=== PATIENT | male | born 1960 | race Caucasian/White ===

== ENCOUNTER 2016-11-28 22:02 | Emergency (ER) | payer OTHER ==
[~2016-11-28] VITALS: Ht 172.7 cm; Wt 60.0 kg
[~2016-11-28 22:02] MED LIST: IBUP600T26 PO; LISI-357 PO
[2016-11-28] MEDS ORDERED: LISI-519 PO (23:26)
--- NOTE | 2016-11-28 23:27 | PD ---
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 The donor patient is comatose and likely to be a victim of drug overdose. The donor patient may have used this needle, it was left uncapped and a small pouch. The needle is an insulin syringe with a tiny insulin syringe needle on the end. The donor patient does not have any IV drug abuse [place] on his forearms. The donor patient appears to be healthy and well hydrated. The needlestick that the [place] officer received was so small that he did not think it broke the skin initially. A small amount of blood later came from the stick on his left index finger. At this time we have no friends or family available to get a history about the donor patient. The officer received the needlestick at approximately 9:30 PM tonight. The donor patient appears to be in his 20s. One girl who was with the donor patient thought he might of been injecting heroin. The officer has a history of hypertension and ran out of his lisinopril. We will write him a prescription for his usual 5 mg lisinopril. PFSH Past Medical History Anxiety: Yes Cancer: No Diabetes: No Diminished Hearing: No Glaucoma: No Headaches: Yes Hepatitis: No Hiatal Hernia: No Hypertension: Yes Thyroid Disease: No Past Surgical History Ear Surgery: No Eye Surgery: No Genitourinary Surgery: Yes (urinary stent placed) Gynecologic Surgery: No Oral Surgery: No Pacemaker: No Other Surgery: Yes Social History Alcohol Use: No Tobacco Use: Yes (1 BLK & MILD DAILY) Substance Use: No Allergies-Medications (Allergen,Severity, Reaction): Coded Allergies: No Known Allergies (Verified , 01/25/15) Reported Meds & Prescriptions Reported Meds & Active Scripts Active Ibuprofen 600 Mg Tab 600 Mg PO TID PRN Reported Lisinopril 5 mg (Lisinopril) 5 Mg Tab 5 Mg PO Review of Systems Except as stated in HPI: all other systems reviewed are Neg Physical Exam Narrative GENERAL: Well-nourished, well-developed patient in no apparent distress. The blood pressure is 179/93. The Rest of his vital signs are normal. SKIN: Warm and dry. I cannot see the area of the needle stick on the left index fingerdistal phalanx. HEAD: Normocephalic. EYES: No scleral icterus. No injection or drainage. NECK: Supple, trachea midline. No JVD or lymphadenopathy. CARDIOVASCULAR: Regular rate and rhythm without murmurs, gallops, or rubs. RESPIRATORY: Breath sounds equal bilaterally. No accessory muscle use. GASTROINTESTINAL: Abdomen soft, non-tender, nondistended. MUSCULOSKELETAL: No cyanosis, or edema. BACK: Nontender without obvious deformity. No CVA tenderness. MDM Medical Decision Making Medical Screen Exam Complete: Yes Emergency Medical Condition: Yes Medical Record Reviewed: Yes Differential Diagnosis Contaminated needlestickhigh risk for hepatitis/HIV, contaminated needle stick low risk for hepatitis/HIV, Narrative Course The patient has a contaminated needle stick which appears to be low risk for hepatitis/HIV. At this time we are testing the donor patient as well as the officer. We will know the results of the HIV/hepatitis testing by tomorrow. Tonight we will get a rapid HIV test. Diagnosis Primary Impression: Needlestick injury with contaminated needle Additional Impression: Medication refill Additional Instructions: Follow-up tomorrow to get the results of her testing. Tonight you will get the rapid HIV result. Med/Other Pt SpecificInfo: Prescription(s) given Scripts Lisinopril 5 Mg Tab5 Mg PO DAILY #30 TAB Ref 0 Prov:Jose Alejandro Reno MD 11/28/16 Disposition: DISCHARGE HOME Condition: Stable Jose Alejandro Reno MD Nov 28, 2016 23:27
[2016-11-28 23:30] VITALS: BP 179/93; PULSE 60; RESP 18; TEMP 98.6; O2SAT 98
== END 2016-11-28 23:45 | disposition home or self-care (01) ==
LOC: PHED 22:02
DX: S61.231A Puncture wound without foreign body of left index finger without damage to nail, initial encounter (principal); I10 Essential (primary) hypertension; Z76.0 Encounter for issue of repeat prescription; W46.0XXA Contact with hypodermic needle, initial encounter; Y93.F9 Activity, other caregiving; Y92.230 Patient room in hospital as the place of occurrence of the external cause; Y99.0 Civilian activity done for income or pay
CPT/HCPCS: 99282